=== PATIENT | male | born 1970 | race Caucasian/White ===

== ENCOUNTER 2016-08-27 10:00 | Outpatient (RCR) ==
--- NOTE | 2016-08-04 14:16 | RS.OPPTDN ---
Subjective Date of Note: 08/04/16 Visit #: 8 Date of Evaluation: 07/16/16 Treatment Diagnosis: Complete left RCT Current Subjective/complaints:: Patient reports he will see physician next Wednesday and hopes to be released from sling. *Precautions: Per protocol Pain Assessment - Pain Description Pain Location: Left shoulder Pain Description: Intermittent pain Current Pain Intensity: 3/10 - Heat/Cryotherapy Treatment: Hot Pack ([id number] to the left shoulder prior to EX. Patient in supine. ) Interventions - Exercise/Activities/Manual Therapy Exercises/Activities: 30 mins. Left shoulder PROM into flex, scaption, abd, ER, and IR. ROM of left elbow. Isometric left biceps and triceps. Began light left shoulder adduction with pillow. HEP and safety precatuion review. In standing, Codman's. Total minutes of Exercise: 30mins Manual Therapy: NA HOME EXERCISE PROGRAM: PROM for shoulder.Active wrist and elbow exercises only at this time. Codmans. Began light isometric contraction adduction. - Charges Total Direct Minutes: 30mins Total Treatment Time: 45mins Procedures billed for this date of service:: HP, EX2 Assessment: Patient starting light isometrics as he is at week 6 and will progress with protocol next week. Patient Education: Home Exercise Program, Home Safety, Activity Modification Patient demonstrates compliance with HEP?: Yes Short Term Goals Goal #1: Left shoulder flexion 100 degrees Goal to be met by: 08/28/16 Progress towards Goal:: Progressing Goal #2: Left shoulder abduction 100 degrees Goal to be met by: 08/28/16 Progress towards Goal:: Progressing Goal #3: Left shoulder external rotation 50 degrees Goal to be met by: 08/28/16 Progress towards Goal:: Progressing Goal #4: Child Support Investigator strength 75 lbs on left Goal to be met by: 08/28/16 (N/A) Assisted Goals Goal #1: Left shoulder AROM WFLs in all planes. Goal to be met by: 10/09/16 Goal #2: Left shoulder strength 5/5 Goal to be met by: 10/09/16 Goal #3: Elminate left shoulder pain with all ADLs. Goal to be met by: 10/09/16 Goal #4: Patient independent with HEP. Goal to be met by: 10/09/16 Plan PLAN OF CARE EXPIRES ON:: 10/09/16 ORDER # VISITS AND/OR THROUGH DATE: 10/09/2016 PLAN: Continue Plan of Care
--- NOTE | 2016-08-11 10:59 | RS.OPPTDN ---
Subjective Date of Note: 08/06/16 Visit #: 9 Date of Evaluation: 07/16/16 Treatment Diagnosis: Complete left RCT Current Subjective/complaints:: Patient continues to be motivated and compliant to protocol for RTC repair.He is 5 weeks post-op tomorrow. *Precautions: Per protocol Pain Assessment - Pain Description Pain Location: Left shoulder Pain Description: muscle soreness today. Current Pain Intensity: 0 at rest - Heat/Cryotherapy Treatment: Hot Pack (20 mins. prior to exercises.) Interventions - Exercise/Activities/Manual Therapy Exercises/Activities: 30 mins.2# resistance for biceps curls and wrist flexion / extension in supine. Left shoulder PROM into flex, scaption, abd, ER, and IR. ROM today in supine with UE in scapular plane ;scaption 118,abduction 98,IR 50 , ER 50 degrees. Total minutes of Exercise: 30 Manual Therapy: NA Total minutes of Manual Therapy: 0 HOME EXERCISE PROGRAM: PROM for shoulder.Active wrist and elbow exercises only at this time. Codmans. Began light isometric contraction adduction. - Charges Total Direct Minutes: 30 Total Treatment Time: 50 Procedures billed for this date of service:: hp,ex 2 Assessment: Patient is progressing well,tolerate PROM in all planes ,with less muscle guarding with eccentric motions.He is compliant to RTC protocol,good knowledge of pain management if necessary. Patient Education: Education of diagnosis, Body/Joint mechanics, Home Exercise Program, Home Safety, Activity Modification, Education of Plan of Care Patient demonstrates compliance with HEP?: Yes Short Term Goals Goal #1: Left shoulder flexion 100 degrees Goal to be met by: 08/28/16 Progress towards Goal:: Partially Met Goal #2: Left shoulder abduction 100 degrees Goal to be met by: 08/28/16 Progress towards Goal:: Progressing Goal #3: Left shoulder external rotation 50 degrees Goal to be met by: 08/28/16 Progress towards Goal:: Met Goal #4: Zoo Caretaker strength 75 lbs on left Goal to be met by: 08/28/16 (N/A) Long-Term Goals Goal #1: Left shoulder AROM WFLs in all planes. Goal to be met by: 10/09/16 Goal #2: Left shoulder strength 5/5 Goal to be met by: 10/09/16 Goal #3: Elminate left shoulder pain with all ADLs. Goal to be met by: 10/09/16 Goal #4: Patient independent with HEP. Goal to be met by: 10/09/16 Plan PLAN OF CARE EXPIRES ON:: 10/09/16 ORDER # VISITS AND/OR THROUGH DATE: 10/09/2016 PLAN: Continue Plan of Care
--- NOTE | 2016-08-11 14:01 | RS.OPPTDN ---
Subjective Date of Note: 08/11/16 Visit #: 10 Date of Evaluation: 07/16/16 Treatment Diagnosis: Complete left RCT Current Subjective/complaints:: Patient reports seeing physican. States he was pleased with patient progress and released patient from wearing sling. *Precautions: Per protocol Pain Assessment - Pain Description Pain Location: Left shoulder Pain Description: muscle soreness today. Current Pain Intensity: 0 at rest Interventions - Exercise/Activities/Manual Therapy Exercises/Activities: 40mins. PROM of the left shoulder. Biceps curls and wrist flexion /extension in supine. Isometric left shoulder add, ext, IR, and ER, multiple reps. Also, isometric biceps and triceps, multiple reps. Began light wand for chest press, short range overhead flexion, and IR/ER. Total minutes of Exercise: 40mins Manual Therapy: NA HOME EXERCISE PROGRAM: PROM for shoulder.Active wrist and elbow exercises only at this time. Codmans. Began light isometric contraction adduction. Wand for chest press, short range overhead flexion, and IR/ER. - Charges Total Direct Minutes: 40mins Total Treatment Time: 45mins Procedures billed for this date of service:: EX3 Assessment: Patient progressing with exercise. Patient Education: Home Exercise Program, Home Safety Patient demonstrates compliance with HEP?: Yes Short Term Goals Goal #1: Left shoulder flexion 100 degrees Goal to be met by: 08/28/16 Progress towards Goal:: Partially Met Goal #2: Left shoulder abduction 100 degrees Goal to be met by: 08/28/16 Progress towards Goal:: Progressing Goal #3: Left shoulder external rotation 50 degrees Goal to be met by: 08/28/16 Progress towards Goal:: Met Goal #4: Fire Protection Equipment Technician strength 75 lbs on left Goal to be met by: 08/28/16 (N/A) Electronics Utility Worker Goals Goal #1: Left shoulder AROM WFLs in all planes. Goal to be met by: 10/09/16 Goal #2: Left shoulder strength 5/5 Goal to be met by: 10/09/16 Goal #3: Elminate left shoulder pain with all ADLs. Goal to be met by: 10/09/16 Goal #4: Patient independent with HEP. Goal to be met by: 10/09/16 Plan PLAN OF CARE EXPIRES ON:: 10/09/16 ORDER # VISITS AND/OR THROUGH DATE: 10/09/2016 PLAN: Continue Plan of Care
--- NOTE | 2016-08-14 11:55 | RS.OPPTDN ---
Subjective Date of Note: 08/13/16 Visit #: 11 Date of Evaluation: 07/16/16 Treatment Diagnosis: Complete left RCT Current Subjective/complaints:: Reports shoulder discomfort seems to get better through the therapy session. Asks if he could wean down to once a week towards the last few sessions that he has approved. *Precautions: Per protocol Pain Assessment - Pain Description Pain Location: Left shoulder Pain Description: muscle soreness today. Current Pain Intensity: 0 at rest - Heat/Cryotherapy Treatment: Hot Pack (X 5 mins to left shoulder prior to exercises) Interventions - Exercise/Activities/Manual Therapy Exercises/Activities: 36 mins. PROM of the left shoulder. Biceps curls and wrist flexion /extension in supine. Isometric left shoulder add, ext, IR, and ER , multiple reps. Also, isometric biceps and triceps, multiple reps. 1# wand for chest press, short range overhead flexion, and IR/ER. Demonstrated shoulder ER stretching for home. Manual Therapy: NA HOME EXERCISE PROGRAM: PROM for shoulder.Active wrist and elbow exercises only at this time. Codmans. Began light isometric contraction adduction. Wand for chest press, short range overhead flexion, and IR/ER. - Charges Total Direct Minutes: 36 mins Total Treatment Time: 41 mins Procedures billed for this date of service:: EX2 Assessment: Patient tolerates all activities in the department well. He demonstrates the need for progressed strengthening per protocol and as tolerated. He is very receptive to advice for home. Discussed continuing next week twice a week, but possibly weaning to once a week to progress strengthening while he works on HEP. Patient Education: Education of diagnosis, Body/Joint mechanics, Home Exercise Program, Home Safety, Activity Modification, Education of Plan of Care Patient demonstrates compliance with HEP?: Yes Short Term Goals Goal #1: Left shoulder flexion 100 degrees Goal to be met by: 08/28/16 Progress towards Goal:: Partially Met Goal #2: Left shoulder abduction 100 degrees Goal to be met by: 08/28/16 Progress towards Goal:: Progressing Goal #3: Left shoulder external rotation 50 degrees Goal to be met by: 08/28/16 Progress towards Goal:: Met Goal #4: Cinema Or Theatre Manager strength 75 lbs on left Goal to be met by: 08/28/16 (N/A) Currency Counter Goals Goal #1: Left shoulder AROM WFLs in all planes. Goal to be met by: 10/09/16 Progress towards goal: Progressing Goal #2: Left shoulder strength 5/5 Goal to be met by: 10/09/16 Goal #3: Elminate left shoulder pain with all ADLs. Goal to be met by: 10/09/16 Goal #4: Patient independent with HEP. Goal to be met by: 10/09/16 Plan PLAN OF CARE EXPIRES ON:: 10/09/16 ORDER # VISITS AND/OR THROUGH DATE: 10/09/2016 PLAN: Progress Exercises (strengthening per protocol)
--- NOTE | 2016-08-18 13:59 | RS.OPPTDN ---
Subjective Date of Note: 08/18/16 Visit #: 12 Date of Evaluation: 07/16/16 Treatment Diagnosis: Complete left RCT Current Subjective/complaints:: Patient reports he is doing better with light activities at home. *Precautions: Per protocol Pain Assessment - Pain Description Pain Location: Left shoulder Pain Description: muscle soreness today. Current Pain Intensity: 0 at rest Interventions - Exercise/Activities/Manual Therapy Exercises/Activities: 35mins. PROM of the left shoulder. Biceps curls and wrist flexion /extension in supine. Isometric left shoulder add, ext, IR, and ER, multiple reps. Also, isometric biceps and triceps, multiple reps. 1# wand for chest press, short range overhead flexion, and IR/ER. Began cuff series no weights. Total minutes of Exercise: 35mins Manual Therapy: NA HOME EXERCISE PROGRAM: PROM for shoulder.Active wrist and elbow exercises only at this time. Codmans. Began light isometric contraction adduction. Wand for chest press, short range overhead flexion, and IR/ER. Cuff series no weights. - Charges Total Direct Minutes: 35mins Total Treatment Time: 35mins Procedures billed for this date of service:: EX2 Assessment: Patient progressing well with ROM and with light exercise. Patient Education: Home Exercise Program Patient demonstrates compliance with HEP?: Yes Short Term Goals Goal #1: Left shoulder flexion 100 degrees Goal to be met by: 08/28/16 Progress towards Goal:: Met Comments:: Passive 170 degrees Goal #2: Left shoulder abduction 100 degrees Goal to be met by: 08/28/16 Progress towards Goal:: Met Goal #3: Left shoulder external rotation 50 degrees Goal to be met by: 08/28/16 Progress towards Goal:: Met Comments:: Passive 90 degrees Goal #4: Executive Steward strength 75 lbs on left Goal to be met by: 08/28/16 (N/A) Jail Goals Goal #1: Left shoulder AROM WFLs in all planes. Goal to be met by: 10/09/16 Progress towards goal: Progressing Goal #2: Left shoulder strength 5/5 Goal to be met by: 10/09/16 Goal #3: Elminate left shoulder pain with all ADLs. Goal to be met by: 10/09/16 Goal #4: Patient independent with HEP. Goal to be met by: 10/09/16 Plan PLAN OF CARE EXPIRES ON:: 10/09/16 ORDER # VISITS AND/OR THROUGH DATE: 10/09/2016 PLAN: Continue Plan of Care
--- NOTE | 2016-08-20 13:15 | RS.OPPTDN ---
Subjective Date of Note: 08/20/16 Visit #: 13 Date of Evaluation: 07/16/16 Treatment Diagnosis: Complete left RCT Current Subjective/complaints:: Patient states he feels as though he is making good progress. *Precautions: Per protocol Pain Assessment - Pain Description Pain Location: Left shoulder Pain Description: muscle soreness today. Current Pain Intensity: 0 at rest Interventions - Exercise/Activities/Manual Therapy Exercises/Activities: 35mins. PROM of the left shoulder. Isometric left shoulder add, ext, IR, and ER, multiple reps. Also, isometric biceps and triceps , multiple reps. 1# wand for chest press, short range overhead flexion, and IR/ ER. Cuff series no weights. In sitting, AAROM for flexion, scaption, abduction, and horizontal abduction. Began overhead pulleys. Total minutes of Exercise: 35mins Manual Therapy: NA HOME EXERCISE PROGRAM: PROM for shoulder.Active wrist and elbow exercises only at this time. Codmans. Began light isometric contraction adduction. Wand for chest press, short range overhead flexion, and IR/ER. Cuff series no weights. - Objective Findings Observations,measurements,etc.: Patient at 7 weeks post-op today. - Charges Total Direct Minutes: 35mins Total Treatment Time: 35mins Procedures billed for this date of service:: EX2 Assessment: Patient progressing with exercises and AAROM. Patient Education: Body/Joint mechanics, Home Exercise Program, Home Safety, Activity Modification Patient demonstrates compliance with HEP?: Yes Short Term Goals Goal #1: Left shoulder flexion 100 degrees Goal to be met by: 08/28/16 Progress towards Goal:: Met Goal #2: Left shoulder abduction 100 degrees Goal to be met by: 08/28/16 Progress towards Goal:: Met Goal #3: Left shoulder external rotation 50 degrees Goal to be met by: 08/28/16 Progress towards Goal:: Met Goal #4: Telephone Services Sales Representative strength 75 lbs on left Goal to be met by: 08/28/16 (N/A) [employer] Net Goals Goal #1: Left shoulder AROM WFLs in all planes. Goal to be met by: 10/09/16 Progress towards goal: Progressing Goal #2: Left shoulder strength 5/5 Goal to be met by: 10/09/16 Goal #3: Elminate left shoulder pain with all ADLs. Goal to be met by: 10/09/16 Goal #4: Patient independent with HEP. Goal to be met by: 10/09/16 Plan PLAN OF CARE EXPIRES ON:: 10/09/16 ORDER # VISITS AND/OR THROUGH DATE: 10/09/2016 PLAN: Continue Plan of Care
--- NOTE | 2016-08-25 11:03 | RS.OPPTDN ---
Subjective Date of Note: 08/25/16 Visit #: 14 Date of Evaluation: 07/16/16 Treatment Diagnosis: Complete left RCT Current Subjective/complaints:: Patient reports progressing with AAROM activities in department and at home. *Precautions: Per protocol Pain Assessment - Pain Description Pain Location: Left shoulder Pain Description: muscle soreness today. Current Pain Intensity: 0 at rest Interventions - Exercise/Activities/Manual Therapy Exercises/Activities: 32mins. PROM of the left shoulder. Isometric left shoulder add, ext, IR, and ER, multiple reps. Also, isometric biceps and triceps , multiple reps. 3# wand for chest press, short range overhead flexion, and IR/ ER. Cuff series with 1# dumbell. Multi-gym for scap retraction 20# 20reps and short range right shoulder adduction 5# [id number]. Modified wall push-ups 10reps. In sitting, AAROM for flexion, scaption, abduction, and horizontal abduction. Wand for flexion to shoulder height and overhead. Total minutes of Exercise: 32mins Manual Therapy: NA HOME EXERCISE PROGRAM: PROM for shoulder.Active wrist and elbow exercises only at this time. Codmans. Began light isometric contraction adduction. Wand for chest press, short range overhead flexion, and IR/ER. Cuff series no weights. - Charges Total Direct Minutes: 32mins Total Treatment Time: 35mins Procedures billed for this date of service:: EX2 Assessment: Patient progressing well with exercise and with PROM and AAROM. Patient Education: Home Exercise Program Patient demonstrates compliance with HEP?: Yes Short Term Goals Goal #1: Left shoulder flexion 100 degrees Goal to be met by: 08/28/16 Progress towards Goal:: Met Goal #2: Left shoulder abduction 100 degrees Goal to be met by: 08/28/16 Progress towards Goal:: Met Goal #3: Left shoulder external rotation 50 degrees Goal to be met by: 08/28/16 Progress towards Goal:: Met Goal #4: Workforce Manager strength 75 lbs on left Goal to be met by: 08/28/16 (N/A) Physical Meteorologist Goals Goal #1: Left shoulder AROM WFLs in all planes. Goal to be met by: 10/09/16 Progress towards goal: Progressing Goal #2: Left shoulder strength 5/5 Goal to be met by: 03/10/17 Goal #3: Elminate left shoulder pain with all ADLs. Goal to be met by: 10/09/16 Goal #4: Patient independent with HEP. Goal to be met by: 10/09/16 Plan PLAN OF CARE EXPIRES ON:: 10/09/16 ORDER # VISITS AND/OR THROUGH DATE: 10/09/2016 PLAN: Continue Plan of Care
--- NOTE | 2016-08-27 10:57 | RS.OPPTDN ---
Subjective Date of Note: 08/27/16 Visit #: 15 Date of Evaluation: 07/16/16 (Sx 12-01-16) Treatment Diagnosis: Complete left RCT Current Subjective/complaints:: Patient reports he is consistent with HEP and has better use of the left UE at home. *Precautions: Per protocol Pain Assessment - Pain Description Pain Location: Left shoulder Pain Description: muscle soreness today. Current Pain Intensity: 0 at rest Interventions - Exercise/Activities/Manual Therapy Exercises/Activities: 35mins. PROM of the left shoulder. Isometric left shoulder flex, ext, add, abd, IR, and ER, multiple reps at different angles of shoulder flexion position. Isometric biceps and triceps, multiple reps. 3# wand for chest press, short range overhead flexion, and IR/ER. Hold therapy ball overhead for horizontal abd/add, multiple reps. Cuff series increased 2# dumbell. Multi-gym for scap retraction 20# 20reps and short range right shoulder flex, ext, abd, and add, 5# [id number] each. Modified wall push-ups 2s/ 10reps. Ball on wall. In sitting, AAROM for flexion, scaption, abduction, and horizontal abduction. Wand for flexion to shoulder height and overhead. Began red theraband for bilateral shoulder ER, 2s/10reps. Total minutes of Exercise: 35mins Manual Therapy: NA HOME EXERCISE PROGRAM: PROM for shoulder.Active wrist and elbow exercises only at this time. Codmans. Began light isometric contraction adduction. Wand for chest press, short range overhead flexion, and IR/ER. Cuff series, 1# to 2#. Red theraband bilateral shoulder ER. Ball on the wall. - Charges Total Direct Minutes: 35mins Total Treatment Time: 35mins Procedures billed for this date of service:: EX2 Assessment: Patient progressing well with AROM and with low level strengthening. Patient Education: Home Exercise Program, Home Safety, Activity Modification Patient demonstrates compliance with HEP?: Yes Short Term Goals Goal #1: Left shoulder flexion 100 degrees Goal to be met by: 08/28/16 Progress towards Goal:: Met Goal #2: Left shoulder abduction 100 degrees Goal to be met by: 08/28/16 Progress towards Goal:: Met Goal #3: Left shoulder external rotation 50 degrees Goal to be met by: 08/28/16 Progress towards Goal:: Met Goal #4: Duralumin Metalworker strength 75 lbs on left Goal to be met by: 08/28/16 Prison Goals Goal #1: Left shoulder AROM WFLs in all planes. Goal to be met by: 10/09/16 Progress towards goal: Progressing Goal #2: Left shoulder strength 5/5 Goal to be met by: 10/09/16 Goal #3: Elminate left shoulder pain with all ADLs. Goal to be met by: 10/09/16 Progress towards goal: Progressing Goal #4: Patient independent with HEP. Goal to be met by: 10/09/16 Progress towards goal: Progressing Plan PLAN OF CARE EXPIRES ON:: 10/09/16 ORDER # VISITS AND/OR THROUGH DATE: 10/09/2016 PLAN: Continue Plan of Care
== END 2016-09-01 ==
PROVIDERS: ATTEND Orthopaedic Surgery
DX: M75.122 Complete rotator cuff tear or rupture of left shoulder, not specified as traumatic (principal)

== ENCOUNTER 2016-09-16 13:00 | Outpatient (RCR) ==
--- NOTE | 2016-09-02 14:07 | RS.OPPTDN ---
Subjective Date of Note: 09/02/16 Visit #: 16 Date of Evaluation: 07/16/16 (Sx 12--16) Treatment Diagnosis: Complete left RCT Current Subjective/complaints:: Patient reports progressing strength and daily activities. *Precautions: Per protocol Pain Assessment - Pain Description Pain Location: Left shoulder Pain Description: muscle soreness today. Current Pain Intensity: 0 at rest Interventions - Exercise/Activities/Manual Therapy Exercises/Activities: 35mins. PROM of the left shoulder. Isometric left shoulder flex, ext, add, abd, IR, and ER, multiple reps at different angles of shoulder flexion position. Isometric biceps and triceps, multiple reps. Increased to 5# wand for chest press, short range overhead flexion, and IR/ER. Holds 5# therapy ball overhead for horizontal abd/add, multiple reps. Multi-gym 30# scapular retraction and short range right shoulder forward chest press 5#, 2s/10reps each. Modified wall push-ups 2s/10reps. Ball on wall. In sitting, AAROM for flexion, scaption, abduction, and horizontal abduction. Wand for flexion to shoulder height and overhead. Chest pass light ball, multiple reps. Shot-putt throw 2# ball, 10reps. Total minutes of Exercise: 35mins Manual Therapy: NA HOME EXERCISE PROGRAM: PROM for shoulder.Active wrist and elbow exercises only at this time. Codmans. Began light isometric contraction adduction. Wand for chest press, short range overhead flexion, and IR/ER. Cuff series, 1# to 2#. Red theraband bilateral shoulder ER. Ball on the wall. - Objective Findings Observations,measurements,etc.: PROM WNL - Charges Total Direct Minutes: 35mins Total Treatment Time: 35mins Procedures billed for this date of service:: EX2 Assessment: Patient progressing with strengthening and ADL's at home. Will need to continue strengthening to prepare for returning to work. Patient Education: Body/Joint mechanics, Home Exercise Program, Activity Modification Patient demonstrates compliance with HEP?: Yes Short Term Goals Goal #1: Left shoulder flexion 100 degrees Goal to be met by: 08/28/16 Progress towards Goal:: Met Goal #2: Left shoulder abduction 100 degrees Goal to be met by: 08/28/16 Progress towards Goal:: Met Goal #3: Left shoulder external rotation 50 degrees Goal to be met by: 08/28/16 Progress towards Goal:: Met Goal #4: Winding Inspector strength 75 lbs on left Goal to be met by: 08/28/16 Office Automation Technician Goals Goal #1: Left shoulder AROM WFLs in all planes. Goal to be met by: 10/09/16 Progress towards goal: Progressing Goal #2: Left shoulder strength 5/5 Goal to be met by: 10/09/16 Progress towards goal: Progressing Goal #3: Elminate left shoulder pain with all ADLs. Goal to be met by: 10/09/16 Progress towards goal: Progressing Goal #4: Patient independent with HEP. Goal to be met by: 10/09/16 (100%) Progress towards goal: Met Plan PLAN OF CARE EXPIRES ON:: 10/09/16 ORDER # VISITS AND/OR THROUGH DATE: 10/09/2016 PLAN: Continue Plan of Care
--- NOTE | 2016-09-09 13:49 | RS.OPPTDN ---
Subjective Date of Note: 09/09/16 Visit #: 2 Date of Evaluation: 07/16/16 (Sx 12--) Treatment Diagnosis: Complete left RCT Current Subjective/complaints:: Patient reports he is progressing well with strengthening exercises. *Precautions: Per protocol Pain Assessment - Pain Description Pain Location: Left shoulder Pain Description: muscle soreness today. Current Pain Intensity: 0 at rest Interventions - Exercise/Activities/Manual Therapy Exercises/Activities: 35mins. PROM of the left shoulder. Isometric left shoulder flex, ext, add, abd, IR, and ER, multiple reps at different angles of shoulder flexion position. 5# wand for chest press, short range overhead flexion, and IR/ER. Resistive flexion, scaption, horizontal abd/add, and IR/ER with 1# dumbell. Red theraband flexion, extension, chest press, IR, and ER. Multi-gym 30# scapular retraction 3s/10reps and 40# 10reps. Short range right shoulder forward chest press 5#, 2s/10reps each. Modified wall push-ups 10reps. Ball on wall with large ball and 1 1/2# cuff weight to left wrist. In sitting, wand for flexion overhead and abduction. 1# dumbell for resistive flexion, scaption, and abduction. Red theraband for overhead flexion and extension. Total minutes of Exercise: 35mins Manual Therapy: NA HOME EXERCISE PROGRAM: PROM for shoulder.Active wrist and elbow exercises only at this time. Codmans. Began light isometric contraction adduction. Wand for chest press, short range overhead flexion, and IR/ER. Cuff series, 1# to 2#. Red theraband bilateral shoulder ER. Ball on the wall. - Objective Findings Observations,measurements,etc.: Full PROM with stretching. - Charges Total Direct Minutes: 35mins Total Treatment Time: 35mins Procedures billed for this date of service:: EX2 Assessment: Patient progressing well with strength and ROM. 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 Goal to be met by: 10/09/16 Progress towards goal: Progressing Goal #2: Left shoulder strength 5/5 Goal to be met by: 10/09/16 Progress towards goal: Progressing Goal #3: Elminate left shoulder pain with all ADLs. Goal to be met by: 10/09/16 Progress towards goal: Progressing Goal #4: Patient independent with HEP. Goal to be met by: 10/09/16 (100%) Progress towards goal: Met Plan PLAN OF CARE EXPIRES ON:: 10/09/16 ORDER # VISITS AND/OR THROUGH DATE: 10/09/2016 PLAN: Continue Plan of Care
--- NOTE | 2016-09-16 14:01 | RS.OPPTDN ---
Subjective Date of Note: 09/16/16 Visit #: 18 Date of Evaluation: 07/16/16 (Sx 07-02-16) Treatment Diagnosis: Complete left RCT Current Subjective/complaints:: Patient reports he has progressed well with PT. States he is doing more light to moderate activities at home. States he expects to be discharged back to work when he goes for follow-up with his physician next week. *Precautions: Per protocol Pain Assessment - Pain Description Pain Location: Left shoulder Pain Description: muscle soreness today. Current Pain Intensity: 0 at rest Interventions - Exercise/Activities/Manual Therapy Exercises/Activities: 37mins. PROM of the left shoulder. Isometric left shoulder flex, ext, add, abd, IR, and ER, multiple reps at different angles of shoulder flexion position. Increased to 10# wand for chest press, short range overhead flexion, and IR/ER. Resistive flexion, scaption, horizontal abd/add, and IR/ER with 1# dumbell. Green theraband flexion, extension, chest press, IR, and ER. In standing, 1# dumbell for left shoulder flexion and scaption. 3# to left wrist for ball on wall and large ball on wall with both UE's. Multi-gym 30 # scapular retraction 4s/10reps and 30# 10reps. Right shoulder forward chest press 5#, 3s/10reps each. Wall push-ups 10reps. In sitting, wand for flexion overhead and abduction. Overhead forward flexion with blue theraband 3s/10reps. It Sales Consultant testing. Total minutes of Exercise: 37mins Manual Therapy: NA HOME EXERCISE PROGRAM: PROM for shoulder.Active wrist and elbow exercises only at this time. Codmans. Began light isometric contraction adduction. Wand for chest press, short range overhead flexion, and IR/ER. Cuff series, 1# to 2#. Red theraband bilateral shoulder ER. Ball on the wall. - Objective Findings Observations,measurements,etc.: Demos active left shoulder flexion to 180 degrees. Demos 4+/5 MMT right shoulder. Right hand splicer operator 95# and left hand splicer operator 102# - Charges Total Direct Minutes: 37mins Total Treatment Time: 37mins Procedures billed for this date of service:: EX2 Assessment: Patient has progressed well and has completed POC. He has met 6 of 8 treatment goals. He will continue HEP following discharge. Patient Education: Home Exercise Program, Education of Plan of Care Patient demonstrates compliance with HEP?: Yes Short Term Goals Goal #1: Left shoulder flexion 100 degrees Goal to be met by: 08/28/16 Progress towards Goal:: Met Goal #2: Left shoulder abduction 100 degrees Goal to be met by: 08/28/16 Progress towards Goal:: Met Goal #3: Left shoulder external rotation 50 degrees Goal to be met by: 08/28/16 Progress towards Goal:: Met Goal #4: It Sales Consultant strength 75 lbs on left Goal to be met by: 08/28/16 Progress towards Goal:: Met Fpc Goals Goal #1: Left shoulder AROM WFLs in all planes. Goal to be met by: 10/09/16 Progress towards goal: Met Goal #2: Left shoulder strength 5/5 Goal to be met by: 10/09/16 Progress towards goal: Progressing Goal #3: Elminate left shoulder pain with all ADLs. Goal to be met by: 10/09/16 Progress towards goal: Progressing Goal #4: Patient independent with HEP. Goal to be met by: 10/09/16 (100%) Progress towards goal: Met Plan PLAN OF CARE EXPIRES ON:: 10/09/16 ORDER # VISITS AND/OR THROUGH DATE: 10/09/2016 PLAN: Plan for Discharge (Discharge with HEP.)
--- NOTE | 2016-10-19 14:52 | RS.QUICKDC ---
Discharge from PT Date of Discharge: 10/19/16 Number of Visits: 18 Reason for Discharge: Patient progressed and benefitted from treatment. He met 6 of 8 goals, had full ROM, and demo'd 4+/5 MMT above shoulder height. He completed physicians orders and was indepnedent with HEP. Discharged with HEP.
== END 2016-09-29 ==
PROVIDERS: ATTEND Orthopaedic Surgery
DX: M75.122 Complete rotator cuff tear or rupture of left shoulder, not specified as traumatic (principal)

== ENCOUNTER 2019-03-09 15:00 | Outpatient (RCR) ==
--- NOTE | 2019-03-02 16:24 | RS.OPPTDN ---
Subjective Date of Note: 03/02/19 Visit #: 3 Number of visits approved by Insurance: na Date of Evaluation: 02/21/19 Payer Source: Insurance Treatment Diagnosis: Pain in right buttock/hip, tear of right hamstring Current Subjective/complaints:: Patient reports the pain continues to be present wth driving or prolonged sitting ,but none with wlking . *Precautions: Per protocol Pain Assessment - Pain Description Pain Location: R hamstring origin Pain Description: Dull, Aching, Chronic Current Pain Intensity: not rated - Heat/Cryotherapy Treatment: Hot Pack (20 mins. to R hamstrings prior to exercises) Interventions - Exercise/Activities/Manual Therapy Exercises/Activities: 30 mins total , hamstring stretches in supine,piriformis stretches,then prone hams curls with black t-band,standing hip extension with black t-band ,3/15 each.Single leg press @ 135 # ,3/10.Step-ups on 12 " step forward and laterally x 10 each. Total minutes of Exercise: 30 Manual Therapy: NA Total minutes of Manual Therapy: 0 HOME EXERCISE PROGRAM: HS stretch - Charges Timed Code Treatment Minutes: 30 Total Treatment Time: 50 Procedures billed for this date of service:: hp,ex 2 Assessment: Patient reports minimal ache and fatigue with exercises today ,but less intense than when he is driving ( per patient ).He reports minimal increased ache with R piriformis stretche ,but this is at the normal end range of motion. Patient Education: Education of diagnosis, Body/Joint mechanics, Home Exercise Program, Home Safety, Activity Modification, Education of Plan of Care Patient demonstrates compliance with HEP?: Yes Short Term Goals Goal #1: Patient independent with stretching Hamstrings. Goal to be met by: 02/28/19 Progress towards Goal:: Progressing Goal #2: Pain with sitting decreased to less than 2/10. Goal to be met by: 02/28/19 Goal #3: Right SLR 50-55 degrees. Goal to be met by: 02/28/19 Progress towards Goal:: Met Goal #4: Tenderness at right Ischial Tuberosity decreased to none. Goal to be met by: 03/07/19 Research Analyst Goals Goal #1: Pt knows HEP and to continue ex's to maintain level of function at D/C. Goal to be met by: 04/02/19 Progress towards goal: Progressing Goal #2: Pt able to sit for 30 minutes without right ischial tuberosity discomfort. Goal to be met by: 04/02/19 Goal #3: Pt to report no pain with prolonged ambulation. Goal to be met by: 04/02/19 Progress towards goal: Progressing Goal to be met by: 10/09/16 Plan Dates of Residential Goals: 04/02/19 Expiration date of current Insurance Approval:: 04/02/19 PLAN: Cont skilled PT to eliminate R hamstring pain.
--- NOTE | 2019-03-07 16:09 | RS.OPPTDN ---
Subjective Date of Note: 03/07/19 Visit #: 4 Number of visits approved by Insurance: na Date of Evaluation: 02/21/19 Payer Source: Insurance Treatment Diagnosis: Pain in right buttock/hip, tear of right hamstring Current Subjective/complaints:: Patient reports no current pain sitting or with the drive to the clinic today.He still cannot sit longer than 30 mins. due to pain returning. *Precautions: Per protocol Pain Assessment - Pain Description Pain Location: R hamstrings origin Pain Description: Dull, Aching Current Pain Intensity: not rated - Treatment Modality: Class 4 Laser Parameters/Method Applied: Laser x 2 (15 mins. total on hip/sciatica protocol ) Patient Position: Prone - Heat/Cryotherapy Treatment: Hot Pack (20 mns. prior to Laser and ex) Interventions - Exercise/Activities/Manual Therapy Exercises/Activities: 20 mins total , hamstring stretches in supineafter Laser session today Total minutes of Exercise: 20 Manual Therapy: NA Total minutes of Manual Therapy: 0 HOME EXERCISE PROGRAM: HS stretch - Charges Timed Code Treatment Minutes: 20 Total Treatment Time: 55 Procedures billed for this date of service:: hp,ex (no charge for Laser ) Assessment: Patient has no increased pain after Laser or with passive stretches in supine .We discussed the POC as he is approaching rehab potential ,will assess the pain level on the next session. Patient Education: Education of diagnosis, Body/Joint mechanics, Home Exercise Program, Home Safety, Activity Modification, Education of Plan of Care Patient demonstrates compliance with HEP?: Yes Short Term Goals Goal #1: Patient independent with stretching Hamstrings. Goal to be met by: 02/28/19 Progress towards Goal:: Met Goal #2: Pain with sitting decreased to less than 2/10. Goal to be met by: 02/28/19 Progress towards Goal:: Partially Met (varies the longer he sits) Goal #3: Right SLR 50-55 degrees. Goal to be met by: 02/28/19 Progress towards Goal:: Met Goal #4: Tenderness at right Ischial Tuberosity decreased to none. Goal to be met by: 03/07/19 Progress towards Goal:: Met Custodial Goals Goal #1: Pt knows HEP and to continue ex's to maintain level of function at D/C. Goal to be met by: 04/02/19 Progress towards goal: Progressing Goal #2: Pt able to sit for 30 minutes without right ischial tuberosity discomfort. Goal to be met by: 04/02/19 Progress towards goal: No Change Goal #3: Pt to report no pain with prolonged ambulation. Goal to be met by: 04/02/19 Progress towards goal: Progressing Goal to be met by: 10/09/16 Plan Dates of Thermodynamics Engineer Goals: 04/02/19 Expiration date of current Insurance Approval:: PLAN: Cont. skilled PT ,discuss the POC with supervising PT ,initiate D/C plan as patient is approaching rehab potential.
--- NOTE | 2019-03-09 16:25 | RS.OPPTDN ---
Subjective Date of Note: 03/09/19 Visit #: 5 Number of visits approved by Insurance: na Date of Evaluation: 02/21/19 Payer Source: Insurance Treatment Diagnosis: Pain in right buttock/hip, tear of right hamstring Current Subjective/complaints:: Patient feels the Laser helped .He was sore yesterday,but feels better today with walking and driving.He agrees to using the Class IV Laser again today. *Precautions: Per protocol Pain Assessment - Pain Description Pain Location: R hamstring origin Current Pain Intensity: 0 at rest - Treatment Modality: Class 4 Laser Parameters/Method Applied: 15 mins. total ,2 sessions @7.5 mins. for sciatic/ hip protocol Treatment Area: R ischial tuberosity - Heat/Cryotherapy Treatment: Hot Pack (20 mins. prior to stretches) Interventions - Exercise/Activities/Manual Therapy Exercises/Activities: 20 mins total , hamstring stretches in supine,bridging ,R LE only bridging,4 pt. quad on R Manual Therapy: NA HOME EXERCISE PROGRAM: HS stretch - Charges Timed Code Treatment Minutes: 30 Total Treatment Time: 50 Procedures billed for this date of service:: hp,ex ,Class IV Laser Assessment: Progressing ,with report of less pain today with driving and walking longer distances.He is not tender to palpate the origin site of the R hamstrings .He is compliant to HEP. Patient Education: Body/Joint mechanics, Home Exercise Program, Activity Modification, Education of Plan of Care Patient demonstrates compliance with HEP?: Yes Short Term Goals Goal #1: Patient independent with stretching Hamstrings. Goal to be met by: 02/28/19 Progress towards Goal:: Met Goal #2: Pain with sitting decreased to less than 2/10. Goal to be met by: 02/28/19 Progress towards Goal:: Partially Met (varies the longer he sits) Goal #3: Right SLR 50-55 degrees. Goal to be met by: 02/28/19 Progress towards Goal:: Met Goal #4: Tenderness at right Ischial Tuberosity decreased to none. Goal to be met by: 03/07/19 Progress towards Goal:: Met Alf Goals Goal #1: Pt knows HEP and to continue ex's to maintain level of function at D/C. Goal to be met by: 04/02/19 Progress towards goal: Progressing Goal #2: Pt able to sit for 30 minutes without right ischial tuberosity discomfort. Goal to be met by: 04/02/19 Progress towards goal: Progressing Goal #3: Pt to report no pain with prolonged ambulation. Goal to be met by: 04/02/19 Progress towards goal: Progressing Goal to be met by: 10/09/16 Plan Dates of Door Opener Goals: 04/02/19 Expiration date of current Insurance Approval:: 04/02/19 PLAN: Cont. skilled PT to reduce/eliminate R hamstring pain.
--- NOTE | 2019-03-14 15:21 | RS.QUICKDC ---
Discharge from PT Date of Discharge: 03/14/19 Number of Visits: 5 Reason for Discharge: Patient arrives at clinic today,reports no significant change ,temporary relief only from the therapy sessions .He agrees with D/C plan today.
== END 2019-04-01 23:59 ==
PROVIDERS: ATTEND Orthopaedic Surgery
DX: S76.311D Strain of muscle, fascia and tendon of the posterior muscle group at thigh level, right thigh, subsequent encounter (principal)

== ENCOUNTER 2019-03-09 16:23 | Outpatient (RCR) | END 2019-04-01 23:59 | PROVIDERS: ATTEND Orthopaedic Surgery | DX: S76.311D Strain of muscle, fascia and tendon of the posterior muscle group at thigh level, right thigh, subsequent encounter (principal) | CPT/HCPCS: 97039 ==